=== PATIENT | male | born 1985 | race Two or more races ===

== ENCOUNTER 2024-05-30 12:24 | Emergency (ER) | payer OTHER ==
[~2024-05-30] VITALS: Ht 167.6 cm; Wt 70.5 kg
[2024-05-30 12:55] VITALS: TEMP 98
[2024-05-30] MEDS: IBUPROFEN 400 MG TABLET PO ONE (14:45)
[2024-05-30] MEDS: ACETAMINOPHEN 500 MG TABLET PO ONE (14:45)
[2024-05-30 16:50] VITALS: BP 128/82; PULSE 71; RESP 16; O2SAT 100
[2024-05-31 04:11] LABS: GLUCOMETER DEV NAME(LOC) ER.7; GLUCOSE,POINT OF CARE 242 MG/DL (70-110)
== END 2024-05-30 17:19 | disposition home or self-care (01) ==
LOC: EMS 12:44
DX: S93.401A Sprain of unspecified ligament of right ankle, initial encounter (principal); E11.9 Type 2 diabetes mellitus without complications; W19.XXXA Unspecified fall, initial encounter; Y93.68 Activity, volleyball (beach) (court); Y92.89 Other specified places as the place of occurrence of the external cause; Y99.8 Other external cause status
CPT/HCPCS: 82962; 99283